=== PATIENT | male | born 1950 | race Caucasian/White ===

== ENCOUNTER 2017-03-20 13:06 | Day surgery (SDC) | payer OTHER ==
[2017-03-20 14:03] VITALS: BMI 28.7
[2017-03-20 15:13] VITALS: TEMP 98.6
[2017-03-20 16:40] VITALS: BP 130/75; PULSE 56
== END 2017-03-20 16:10 | disposition home or self-care (01) ==
LOC: JASU-ENDO 13:06
PROVIDERS: ATTEND Internal Medicine Gastroenterology
PROC: 0DJD8ZZ Inspection of Lower Intestinal Tract, Via Natural or Artificial Opening Endoscopic (ICD-10-PCS; principal; 2017-03-20 14:00)
DX: K57.30 Diverticulosis of large intestine without perforation or abscess without bleeding (principal); K64.8 Other hemorrhoids